=== PATIENT | male | born 1960 | race Caucasian/White ===

== ENCOUNTER 2024-10-25 17:08 | Inpatient (IN) | payer MEDICAID ==
[~2024-10-25] VITALS: Ht 182.9 cm; Wt 69.9 kg
[2024-10-25 17:11] VITALS: O2SAT 98
[2024-10-25 19:39] LABS: BASOPHILS % 2.1 % (0.0-2.0); EOSINOPHILS % 6.9 % (0.0-5.0); HEMATOCRIT. 37.5 % (42.0-52.0); HEMOGLOBIN. 12.4 g/dL (14.0-18.0); LYMPHOCYTES % 19.7 % (20.0-50.0); MEAN PLATELET VOLUME 7.2 fl (7.4-10.4); MONOCYTES % 7.9 % (2.0-8.0); NEUTROPHILS % 63.4 % (40.0-76.0); PLATELET 236 x1000/uL (130-400); RED BLOOD CELL COUNT 4.14 mill/uL (4.7-6.1); RED CELL DISTRIBUTION WIDTH 15.0 % (11.6-14.6)
[2024-10-25 19:49] LABS: INR 1.0
[2024-10-25 19:55] LABS: CREATININE 4.8 mg/dL (0.6-1.3); UREA NITROGEN BLOOD 55 mg/dL (9-23)
[2024-10-25 19:57] LABS: ASPARTATE AMINOTRANSFERASE 16 IU/L (<34); BILIRUBIN DIRECT < 0.1 mg/dL (<=3.0); BILIRUBIN TOTAL 0.4 mg/dL (0.1-1.0); PROTEIN TOTAL 7.2 g/dL (6.0-8.3)
[2024-10-25] MEDS ORDERED: ONDANSETRON HCL 4MG/2ML INJ IV PRN (22:00)
[2024-10-25] MEDS ORDERED: GUAIFENESIN 200MG/10ML SUGAR FREE UDC PO PRN (22:00)
[2024-10-25] MEDS ORDERED: DOCUSATE SODIUM 100MG CAPSULE PO PRN (22:00)
[2024-10-25] MEDS ORDERED: ACETAMINOPHEN 325MG TABLET PO PRN ×2 (22:00)
[2024-10-25] MEDS ORDERED: DEXTROSE 50% WATER 50ML SYRINGE IV PRN (22:00)
[2024-10-25] MEDS ORDERED: IPRATROPIUM/ALBUTEROL 0.5-3(2.5)MG/3ML NEB HHN PRN (22:00)
[2024-10-25] MEDS ORDERED: CLONIDINE 0.1MG TABLET PO PRN (22:00)
[2024-10-25] MEDS: AMLODIPINE 10MG TABLET PO SCH (23:11)
[2024-10-25 23:40] VITALS: BP 202/80; PULSE 47; RESP 16; TEMP 36.5; O2SAT 100
[2024-10-26] VITALS (14 sets, daily range): BP systolic 119–202; BP diastolic 56–80; PULSE 51–61; RESP 9–17; TEMP 36.2–37; O2SAT 96–99
[2024-10-26] MEDS: HYDRALAZINE 20MG/ML VIAL IV NR (00:33)
[2024-10-26] MEDS: BLOOD SUGAR DIAGNOSTIC STRIP TEST SCH (06:13)
[2024-10-26] MEDS: PANTOPRAZOLE 40MG DR TABLET PO SCH (06:16)
[2024-10-26] MEDS: INSULIN LISPRO 100 UNITS/ML SUBCUT SCH (07:38)
[2024-10-26] MEDS: HYDRALAZINE HCL 100MG TABLET PO SCH (09:03)
[2024-10-26] MEDS ORDERED: LIDOCAINE HCL 1% 10 MG/ML 10ML VIAL ONE (10:22)
[2024-10-26] MEDS ORDERED: HEPARIN 1000 UNITS/ML 10ML ONE (10:23)
[2024-10-26] MEDS ORDERED: CEFAZOLIN 1000MG PREMIX 50 ML IV ONE (10:27)
[2024-10-26 10:34] LABS: CLARITY URINE CLOUDY (CLEAR); COLOR URINE YELLOW (YELLOW); GLUCOSE URINE NEGATIVE (NEGATIVE); KETONES URINE NEGATIVE (NEGATIVE); LEUKOCYTE ESTERASE URINE 3+ (NEGATIVE); NITRITE URINE NEGATIVE (NEGATIVE); OCCULT BLOOD URINE 1+ (NEGATIVE); PH URINE 8.5 (4.5-8.0); PROTEIN URINE 2+ (NEGATIVE); SPECIFIC GRAVITY URINE 1.009 (1.005-1.030); UROBILINOGEN URINE 0.2 E.U./dL (0.2-1.0)
[2024-10-26 11:01] LABS: WBC URINE 50-100 /hpf (0-2)
[2024-10-26 11:02] LABS: BACTERIA URINE 4+; SQUAMOUS EPITHELIAL CELL URINE NONE SEEN /lpf (RARE/1+)
[2024-10-26 11:03] LABS: *AMPHETAMINES SCREEN URINE NEGATIVE (NEGATIVE); *BARBITURATES SCREEN URINE NEGATIVE (NEGATIVE); *BENZODIAZEPINES SCREEN URINE NEGATIVE (NEGATIVE); *COCAINE SCREEN URINE NEGATIVE (NEGATIVE); CANNABINOID URINE SCREEN NEGATIVE (NEGATIVE); ECSTASY MDMA SCREEN URINE NEGATIVE (NEGATIVE); METHADONE URINE SCREEN NEGATIVE (NEGATIVE); OPIATES URINE SCREEN NEGATIVE (NEGATIVE); PHENCYCLIDINE URINE SCREEN NEGATIVE (NEGATIVE)
[2024-10-26] MEDS: CEFAZOLIN 1000MG PREMIX 50 ML IV ONE (11:20)
[2024-10-26] MEDS ORDERED: FENTANYL CITRATE/PF 50MCG/ML 2ML VIAL ONE (11:23)
[2024-10-26] MEDS: FENTANYL CITRATE/PF 50MCG/ML 2ML VIAL IV ONE (11:25)
[2024-10-26] MEDS: CEFTRIAXONE 1GM/50ML 50 ML IV SCH (14:42)
[2024-10-26 16:37] LABS: HEMATOCRIT. 41.1 % (42.0-52.0); HEMOGLOBIN. 13.5 g/dL (14.0-18.0); MEAN PLATELET VOLUME 7.8 fl (7.4-10.4); PLATELET 248 x1000/uL (130-400); RED BLOOD CELL COUNT 4.51 mill/uL (4.7-6.1); RED CELL DISTRIBUTION WIDTH 15.1 % (11.6-14.6)
[2024-10-26 16:48] LABS: TRIGLYCERIDE 72.0 mg/dL (0-150); UREA NITROGEN BLOOD 70.0 mg/dL (9-23)
[2024-10-26 16:49] LABS: LDL CHOLESTEROL 116.0 mg/dL (5-100)
[2024-10-26 16:50] LABS: PHOSPHORUS 4.5 mg/dL (2.5-4.9)
[2024-10-26 16:51] LABS: CREATININE 6.4 mg/dL (0.6-1.3)
[2024-10-26 16:52] LABS: T4 FREE 1.46 ng/dL (0.89-1.76)
[2024-10-26 17:11] LABS: EOSINOPHILS % MANUAL 1.0 % (0.0-5.0); LYMPHOCYTES % MANUAL 5.0 % (20.0-50.0); MONOCYTES % MANUAL 6.0 % (2.0-8.0); NEUTROPHILS % MANUAL 88.0 % (45.0-75.0); PLATELET ESTIMATE NORMAL
[2024-10-26 17:25] LABS: HEPATITIS A AB IGM NEGATIVE (Negative); HEPATITIS B CORE AB IGM NEGATIVE (Negative)
[2024-10-26 17:26] LABS: HEPATITIS C AB NON REACTIVE (Neg) (Negative)
[2024-10-26] MEDS: SODIUM ZIRCONIUM CYCLOSILICATE 10GM/PACKET PO SCH (18:20)
[2024-10-26] MEDS: SODIUM BICARBONATE 8.4% 50MEQ/50ML SYR IV SCH (21:36)
[2024-10-26] MEDS: CALCIUM GLUCONATE 100MG/ML 10ML VIAL IV SCH (21:39)
[2024-10-26] MEDS: TRAZODONE HCL 50MG TABLET PO SCH (21:39)
[2024-10-27] VITALS (9 sets, daily range): BP systolic 114–161; BP diastolic 63–77; PULSE 64–78; RESP 18–19; TEMP 36.5–36.7; O2SAT 98–99
[2024-10-27] MEDS: HYDRALAZINE 20MG/ML VIAL IV PRN (05:06)
[2024-10-27 09:38] LABS: HEMATOCRIT. 39.6 % (42.0-52.0); HEMOGLOBIN. 13.0 g/dL (14.0-18.0); MEAN PLATELET VOLUME 8.4 fl (7.4-10.4); PLATELET 231 x1000/uL (130-400); RED BLOOD CELL COUNT 4.33 mill/uL (4.7-6.1); RED CELL DISTRIBUTION WIDTH 15.3 % (11.6-14.6)
[2024-10-27] MEDS: ARIPIPRAZOLE 5MG TABLET PO SCH (09:54)
[2024-10-27 11:00] LABS: BAND% 10.0 % (1.0-6.0); EOSINOPHILS % MANUAL 2.0 % (0.0-5.0); LYMPHOCYTES % MANUAL 7.0 % (20.0-50.0); MONOCYTES % MANUAL 9.0 % (2.0-8.0); NEUTROPHILS % MANUAL 72.0 % (45.0-75.0); PLATELET ESTIMATE NORMAL
[2024-10-27 12:22] LABS: UREA NITROGEN BLOOD 93 mg/dL (9-23)
[2024-10-27 12:24] LABS: PHOSPHORUS 5.8 mg/dL (2.5-4.9)
[2024-10-27 12:27] LABS: CREATININE 7.7 mg/dL (0.6-1.3)
[2024-10-27] MEDS ORDERED: PANT40TA51 PO (17:57)
[2024-10-27] MEDS ORDERED: TRAZ-251 PO (17:57)
[2024-10-27] MEDS ORDERED: AMLO10TA80 PO (17:57)
[2024-10-27] MEDS ORDERED: AMOX1TAB15 MT (17:57)
[2024-10-27] MEDS ORDERED: HYDR100T31 PO (17:57)
[2024-10-27] MEDS ORDERED: ABIL5 PO (17:57)
== END 2024-10-27 20:45 | disposition home health service (06) | DRG 466 ==
LOC: ER 17:08 → 8WST 21:24 → EDBEDREQ 21:49 → EDBEDREQSVC 21:49 → EDBEDREQTM 21:49 → ENRESERV 22:33
PROVIDERS: ADMIT Internal Medicine; ATTEND Internal Medicine
PROC: 0JH60XZ Insertion of Tunneled Vascular Access Device into Chest Subcutaneous Tissue and Fascia, Open Approach (ICD-10-PCS; principal; 2024-10-26)
PROC: 02H633Z Insertion of Infusion Device into Right Atrium, Percutaneous Approach (ICD-10-PCS; 2024-10-26)
PROC: B5181ZA Fluoroscopy of Superior Vena Cava using Low Osmolar Contrast, Guidance (ICD-10-PCS; 2024-10-26)
PROC: B548ZZA Ultrasonography of Superior Vena Cava, Guidance (ICD-10-PCS; 2024-10-26)
PROC: GZ56ZZZ Individual Psychotherapy, Supportive (ICD-10-PCS; 2024-10-26)
PROC: 5A1D70Z Performance of Urinary Filtration, Intermittent, Less than 6 Hours Per Day (ICD-10-PCS; 2024-10-27)
DX: T82.42XA Displacement of vascular dialysis catheter, initial encounter (principal); I12.0 Hypertensive chronic kidney disease with stage 5 chronic kidney disease or end stage renal disease; E11.22 Type 2 diabetes mellitus with diabetic chronic kidney disease; D64.9 Anemia, unspecified; E87.5 Hyperkalemia; F39 Unspecified mood [affective] disorder; N18.6 End stage renal disease; F84.0 Autistic disorder; G47.00 Insomnia, unspecified; Y84.1 Kidney dialysis as the cause of abnormal reaction of the patient, or of later complication, without mention of misadventure at the time of the procedure; F91.9 Conduct disorder, unspecified; N39.0 Urinary tract infection, site not specified; Z79.4 Long term (current) use of insulin; Z99.2 Dependence on renal dialysis; Z79.899 Other long term (current) drug therapy; Y92.89 Other specified places as the place of occurrence of the external cause
CPT/HCPCS: 36415; 36558; 80048; 80061; 80076; 80305; 81003; 82962; 83036; 83735; 84100; 84132; 84439; 84443; 85025; 86705; 86709; 86850; 86900; 87340; 90935; 93005; 93970; 99152; 99153; 99285; C1769; J0360; J0610; J0690; J0696; J1644; J1815; J2003; J3010; J3490; G0500